=== PATIENT | female | born 1970 | race Caucasian/White ===

== ENCOUNTER 2017-10-31 18:36 | Emergency (ER) | payer MEDICAID ==
[~2017-10-31] VITALS: Ht 167.6 cm; Wt 69.7 kg
[2017-10-31] MEDS ORDERED: SODIUM CHLORIDE FLUSH 10ML SYR IVF ONE (19:30)
[2017-10-31] MEDS ORDERED: KETOROLAC 30 MG/1 ML IVPush ONE (19:30)
[2017-10-31] MEDS ORDERED: DIPHENHYDRAMINE 50 MG/ML, 1ML IVPush ONE (19:30)
[2017-10-31] MEDS ORDERED: SODIUM CHLORIDE 0.9% 1,000ML IVBOLUS ONE (19:30)
[2017-10-31] MEDS ORDERED: PROCHLORPERAZINE 5 MG/ML, 2ML IVPush ONE (19:30)
[2017-10-31] MEDS ORDERED: hydrALAzine 20 MG/ML, 1ML IV ONE (19:30)
[2017-10-31 19:50] LABS: BASOPHILS # (AUTO) 0.03 x10^3/uL (0-0.1); BASOPHILS % (AUTO) 0 % (0-1); EOSINOPHILS # (AUTO) 0.39 x10^3/uL (0-0.4); EOSINOPHILS % (AUTO) 5 % (1-7); LYMPHOCYTES # (AUTO) 2.77 x10^3/uL (1-3.4); LYMPHOCYTES % (AUTO) 33 % (22-44); MD NO; MEAN CORPUSCULAR HEMOGLOBIN 30.3 pg (27.0-34.8); MEAN CORPUSCULAR HGB CONC 33.3 g/dL (32.4-35.8); MEAN PLATELET VOLUME 8.3 fL (7.4-10.4); MONOCYTES # (AUTO) 0.45 x10^3/uL (0.2-0.8); MONOCYTES % (AUTO) 6 % (2-9); NEUTROPHILS # (AUTO) 4.64 x10^3/uL (1.8-6.8); NEUTROPHILS % (AUTO) 56 % (42-75); PLATELET COUNT 226 x10^3/uL (130-400); RED BLOOD COUNT 4.15 x10^6/uL (3.82-5.3); RED CELL DISTRIBUTION WIDTH 14.3 % (9.6-15.2)
[2017-10-31] MEDS ORDERED: hydrALAzine 20 MG/ML, 1ML ONE (19:55)
[2017-10-31] MEDS ORDERED: PROCHLORPERAZINE 5 MG/ML, 2ML ONE (19:55)
[2017-10-31] MEDS ORDERED: KETOROLAC 30 MG/1 ML ONE (19:56)
[2017-10-31] MEDS ORDERED: DIPHENHYDRAMINE 50 MG/ML, 1ML ONE (19:56)
[2017-10-31 20:02] LABS: ALBUMIN 3.6 g/dL (3.4-5.0); ANION GAP 9 mmol/L (5-15); CALCIUM 8.2 mg/dL (8.5-10.1); CHLORIDE 108 mmol/L (98-107); CREATININE 0.81 mg/dL (0.55-1.02)
[2017-10-31] MEDS ORDERED: OMNIPAQUE 350 MG/ML, 150 ML BOTTLE ONE (21:09)
[2017-10-31] MEDS ORDERED: LIDOCAINE-MPF 1%, 5ML ONE (21:27)
[2017-10-31 21:56] LABS: GLUCOSE, CSF 51 mg/dL (40-80); TOTAL PROTEIN,CSF 46 mg/dL (15-45)
[2017-10-31] MEDS ORDERED: MORPHINE SULFATE 4 MG/ML, 1ML ONE (21:58)
[2017-10-31] MEDS ORDERED: MORPHINE SULFATE 4 MG/ML, 1ML IVPush ONE (22:00)
[2017-10-31 22:03] VITALS: BP 131/77
== END 2017-10-31 23:29 | disposition home or self-care (01) ==
LOC: ED 20:58
DX: I16.9 Hypertensive crisis, unspecified (principal); G44.1 Vascular headache, not elsewhere classified; I63.9 Cerebral infarction, unspecified; R11.10 Vomiting, unspecified; I10 Essential (primary) hypertension
CPT/HCPCS: 36415; 62270; 70450; 70496; 70498; 80048; 82040; 82945; 84157; 85025; 87070; 87205; 89051; 96361; 96374; 96375; 99291; J0360; J0780; J1200; J1885; J7030; Q9967

== ENCOUNTER 2018-08-20 11:42 | Emergency (ER) | payer MEDICAID ==
[~2018-08-20] VITALS: Ht 167.6 cm; Wt 70.6 kg
[2018-08-20 12:01] VITALS: BP 157/87
[2018-08-20] MEDS ORDERED: HYDR25TA6 PO (12:46)
== END 2018-08-20 13:13 | disposition home or self-care (01) ==
LOC: ED 13:00
DX: L03.012 Cellulitis of left finger (principal); L03.211 Cellulitis of face; I10 Essential (primary) hypertension; F17.200 Nicotine dependence, unspecified, uncomplicated
CPT/HCPCS: 99283

== ENCOUNTER 2019-02-18 16:54 | Emergency (ER) | payer MEDICAID ==
[~2019-02-18] VITALS: Ht 167.6 cm; Wt 66.9 kg
[~2019-02-18 16:54] MED LIST: HYDR25TA6 PO
[2019-02-18 16:55] VITALS: BP 138/82
[2019-02-18] MEDS ORDERED: KETOROLAC 30 MG/1 ML ONE (17:09)
[2019-02-18] MEDS ORDERED: KETOROLAC 30 MG/1 ML IM ONE (17:30)
== END 2019-02-18 17:33 | disposition home or self-care (01) ==
LOC: ED 17:22
DX: M62.830 Muscle spasm of back (principal); I10 Essential (primary) hypertension; F17.200 Nicotine dependence, unspecified, uncomplicated
CPT/HCPCS: 93005; 96372; 99283; J1885

== ENCOUNTER 2019-10-31 07:53 | Emergency (ER) | payer MEDICAID ==
[~2019-10-31] VITALS: Ht 167.6 cm; Wt 64.4 kg
[2019-10-31 07:55] VITALS: BP 147/97
--- NOTE | 2019-10-31 08:23 | NUR ---
Providers at bedside.
[2019-10-31] MEDS ORDERED: DIPHENHYDRAMINE 50 MG/ML, 1ML ONE (08:25)
[2019-10-31] MEDS ORDERED: PROCHLORPERAZINE 5 MG/ML, 2ML ONE (08:25)
[2019-10-31] MEDS ORDERED: DIPHENHYDRAMINE 50 MG/ML, 1ML IVPush ONE (08:30)
[2019-10-31] MEDS ORDERED: PROCHLORPERAZINE 5 MG/ML, 2ML IVPush ONE (08:30)
[2019-10-31] MEDS ORDERED: SODIUM CHLORIDE FLUSH 10ML SYR IVF ONE (08:30)
--- NOTE | 2019-10-31 08:35 | NUR ---
Medicated per emar. pt rocking in the bed. pt verablized that rocking helps her when she is in pain. states pain is 9/10 in posterior head/base of neck. pt states pain feels like "someone is grabbing both sides of my neck really tight and I can't get no relief"
[2019-10-31 08:41] LABS: BASOPHILS # (AUTO) 0.06 x10^3/uL (0-0.1); BASOPHILS % (AUTO) 1 % (0-1); EOSINOPHILS # (AUTO) 0.31 x10^3/uL (0-0.4); EOSINOPHILS % (AUTO) 4 % (1-7); LYMPHOCYTES # (AUTO) 1.75 x10^3/uL (1-3.4); LYMPHOCYTES % (AUTO) 24 % (22-44); MD NO; MEAN CORPUSCULAR HEMOGLOBIN 34.5 pg (27.0-34.8); MEAN CORPUSCULAR HGB CONC 33.8 g/dL (32.4-35.8); MONOCYTES # (AUTO) 0.42 x10^3/uL (0.2-0.8); MONOCYTES % (AUTO) 6 % (2-9); NEUTROPHILS # (AUTO) 4.63 x10^3/uL (1.8-6.8); NEUTROPHILS % (AUTO) 65 % (42-75); PLATELET COUNT 308 x10^3/uL (130-400); RED BLOOD COUNT 4.22 x10^6/uL (3.82-5.3); RED CELL DISTRIBUTION WIDTH 13.1 % (9.6-15.2)
--- NOTE | 2019-10-31 08:49 | NUR ---
pt ambulated to the bathroom with a steady gait.
[2019-10-31 08:54] LABS: ALBUMIN 4.4 g/dL (3.4-5.0); ANION GAP 10 mmol/L (5-15); CALCIUM 9.6 mg/dL (8.5-10.1); CHLORIDE 105 mmol/L (98-107); CREATININE 0.85 mg/dL (0.55-1.02)
--- NOTE | 2019-10-31 09:28 | NUR ---
pt states she is much more comfortable at this time. Pain is 2/10
== END 2019-10-31 10:21 | disposition home or self-care (01) ==
LOC: ED 08:53
DX: R51 Headache (principal)
CPT/HCPCS: 36415; 80048; 82040; 85025; 96374; 96375; 99284; J0780; J1200

== ENCOUNTER → 2020-02-24 | Day surgery (SDC) | payer MEDICAID ==
[~2020-02-24] VITALS: Ht 167.6 cm; Wt 76.6 kg
[~2020-02-24] MED LIST changes: +BUPIVACAINE/PF-EPI 0.5% 1:200K INFIL ONE; +BUPIVACAINE/PF-EPI 0.5% 1:200K ONE; +CEFOTETAN PMX 2GM/50ML 50 ML ONE; +DEXAMETHASONE 4 MG/ML, 1ML ONE; +DIPHENHYDRAMINE 50 MG/ML, 1ML IVPush PRN; +ENOXAPARIN 40 MG/0.4 ML SQ SCH; +FENTANYL PF 100 MCG/2ML ONE; +FENTANYL PF 250 MCG/5ML ONE; +IBUPROFEN 600 MG TABLET PO SCH; +KETOROLAC 30 MG/1 ML IVPush PRN; +KETOROLAC 30 MG/1 ML ONE; +LABETALOL 5MG/ML, 20ML IV PRN; +MIDAZOLAM 1 MG/ML, 2ML ONE; +MORPHINE SULFATE 4 MG/ML, 1ML ONE; +ONDANSETRON 2MG/ML, 2ML IVPush ONE; +ONDANSETRON 2MG/ML, 2ML IVPush PRN; +ONDANSETRON 2MG/ML, 2ML ONE; +OXYcodone 5 MG/5 ML ORAL.SOL UDC ONE; +OXYcodone 5 MG/5 ML ORAL.SOL UDC PO PRN; +PROMETHAZINE 25 MG/ML, 1ML IVPush PRN; +ROCURONIUM 10MG/ML,5ML ONE; +SODIUM CHLORIDE FLUSH 10ML SYR IVF ONE; +SODIUM CHLORIDE FLUSH 10ML SYR IVF PRN; +hydrALAzine 20 MG/ML, 1ML IV PRN; +morphine SULFATE 10 MG/ML, 1ML IVPush PRN
[2020-02-24] MEDS: MORPHINE SULFATE 4 MG/ML, 1ML IVPush PRN ×2 (09:20→10:49)
--- NOTE | 2020-02-24 09:42 | NUR ---
PT TO ED FROM HOME. C/O N/V/D INTERMITTENT X3 WEEKS. EPIGAST/RUQ PAIN WORSE ON PALP. DX W GALL STONE 2 YEARS AGO. LMP NOV. DENIES FATTY DIET. VSS. PA IN ROOM FOR EVAL. PIV EST MEDS PER [facility] SENT PLAN FOR US. CALL JEREMI/GM.
[2020-02-24 09:46] LABS: BASOPHILS % (AUTO) 2 % (0-1); EOSINOPHILS # (AUTO) 0.28 x10^3/uL (0-0.4); EOSINOPHILS % (AUTO) 4 % (1-7); LYMPHOCYTES # (AUTO) 1.82 x10^3/uL (1-3.4); LYMPHOCYTES % (AUTO) 28 % (22-44); MD NO; MEAN CORPUSCULAR HEMOGLOBIN 35.5 pg (27.0-34.8); MEAN CORPUSCULAR HGB CONC 33.4 g/dL (32.4-35.8); MEAN CORPUSCULAR VOLUME 106.2 fL (80-100); MEAN PLATELET VOLUME 8.6 fL (7.4-10.4); MONOCYTES # (AUTO) 0.41 x10^3/uL (0.2-0.8); MONOCYTES % (AUTO) 6 % (2-9); NEUTROPHILS # (AUTO) 3.91 x10^3/uL (1.8-6.8); NEUTROPHILS % (AUTO) 60 % (42-75); PLATELET COUNT 229 x10^3/uL (130-400); RED CELL DISTRIBUTION WIDTH 13.4 % (9.6-15.2)
[2020-02-24 09:51] LABS: ALANINE AMINOTRANSFERASE 84 U/L (12-78); ALBUMIN 3.9 g/dL (3.4-5.0); ANION GAP 9 mmol/L (5-15); CALCIUM 9.1 mg/dL (8.5-10.1); CHLORIDE 105 mmol/L (98-107); CREATININE 0.87 mg/dL (0.55-1.02)
[2020-02-24 09:56] LABS: ALKALINE PHOSPHATASE 77 U/L (45-117); BILIRUBIN,TOTAL 1.1 mg/dL (0.2-1.0); TOTAL PROTEIN 7.2 g/dL (6.4-8.2)
--- NOTE | 2020-02-24 10:01 | NUR ---
pain/nausea improved after meds. vss. awaiting us. nad. as
--- NOTE | 2020-02-24 11:07 | NUR ---
in room for update. pt was remedicated for pain. as
--- NOTE | 2020-02-24 11:15 | NUR ---
Prem hurtado in [facility] - 02/24/20 at 1117 by HUGH tbadm/surgery. as
--- NOTE | 2020-02-24 11:17 | NUR ---
pt wants to have surgery, reba consulted w/ gen surgery, awaiting to hear back. as
--- NOTE | 2020-02-24 12:29 | NUR ---
resting in bed pain controlled awaiting admission nad. as
--- NOTE | 2020-02-24 12:41 | NUR ---
aware of npo. as
--- NOTE | 2020-02-24 13:20 | NUR ---
REPORT TO OR NURSE. PT TO GO TO SURG SOON, MADE AWARE.
[2020-02-24] MEDS: FENTANYL PF 100 MCG/2ML IV PRN ×4 (16:14→16:47)
[2020-02-24 18:34] VITALS: BP 113/79
[2020-02-24 19:05] VITALS: BP 115/80
== END | disposition home or self-care (01) ==
LOC: EDSTATUS 07:28 → ED 09:07 → UNDOADMIN 12:21 → EDIP 12:21 → ED 15:56 → 4NE 17:21 → EDIP 17:21 → UNDODISIN 21:30
PROVIDERS: ATTEND Emergency Medicine
DX: K80.10 Calculus of gallbladder with chronic cholecystitis without obstruction (principal); Z11.59 Encounter for screening for other viral diseases; I10 Essential (primary) hypertension; K76.0 Fatty (change of) liver, not elsewhere classified; F17.210 Nicotine dependence, cigarettes, uncomplicated; Z79.899 Other long term (current) drug therapy; Z90.49 Acquired absence of other specified parts of digestive tract; Z88.5 Allergy status to narcotic agent; Z83.79 Family history of other diseases of the digestive system
CPT/HCPCS: 36415; 47562; 76700; 80053; 83690; 84703; 85025; 87635; 88304; 96361; 96374; 96375; 99285; J1100; J1200; J1885; J2250; J2270; J2405; J3010; J3490; G0378